=== PATIENT | male | born 1960 | race Caucasian/White ===

== ENCOUNTER → 2018-04-26 | Day surgery (SDC) | payer BC ==
--- NOTE | 2018-04-24 16:31 | Diagnostic Imaging Report ---
PROCEDURE: Frontal and lateral views of the chest. COMPARISON: None. INDICATIONS: PREOP CXR FINDINGS: Lines/tubes: None. Lungs: The lungs are well inflated and clear. There is no evidence of pneumonia or pulmonary edema. Pleura: There is no pleural effusion or pneumothorax. Heart and mediastinum: The heart and the mediastinum are normal. Bones: No acute bony abnormality. IMPRESSION: 1. No acute cardiopulmonary disease. Dictated by: Herbert Amin M.D. on 04/24/2018 at 16:37 Electronically approved by: Herbert Amin M.D. on 04/24/2018 at 16:37
[2018-04-24 16:37] LABS: BASOPHILS % 0.1 % (0.0-1.0); EOSINOPHILS % 0.4 % (0.0-6.0); HEMATOCRIT 44.9 % (38.2-49.6); HEMOGLOBIN 15.4 g/dL (14.0-18.0); LYMPHOCYTES # (AUTO) 1.9 (1.0-3.2); LYMPHOCYTES % 27.8 % (18.0-39.1); MEAN CORPUSCULAR HEMOGLOBIN 29.3 pg (28-32); MEAN CORPUSCULAR HGB CONC 34.3 g/dL (31-35); MEAN CORPUSCULAR VOLUME 85.5 fL (81-99); MONOCYTES # (AUTO) 0.4 (0.2-0.8); MONOCYTES % 6.3 % (4.4-11.3); NEUTROPHILS # (AUTO) 4.4 (2.1-6.9); NEUTROPHILS % 64.8 % (38.7-80.0); PLATELET COUNT 173 x10e3/uL (140-360); RED BLOOD COUNT 5.25 x10e6/uL (4.3-5.7)
[~2018-04-26] MED LIST: BUPIVACAINE HCL 0.5% INJ 30 ML VIAL INJ ONE; BUSPIRONE HCL5 MG PO; CEFAZOLIN SOD 1 GM VIAL ONE; DEXAMETHASONE SOD PHOS INJ 4 MG/ML VIAL ONE; FENTANYL CITRATE/PF 100MCG/2 ML INJ ONE; HYDROCODONE/APAP 5MG-325MG TAB ONE; HYDROMORPHONE 1MG/1ML INJ ONE; KETOROLAC TROMETHAMINE 30 MG/ML VIAL ONE; LIDOCAINE HCL 2% LOCAL INJ 5 ML SDV VIAL INJ ONE; MIDAZOLAM HCL 2 MG/2 ML VIAL ONE; ONDANSETRON HCL INJ 2 MG/ML VIAL ONE; PANTOPRAZOLE SO40 MG PO; PROPOFOL IV EMULSION 10 MG/ML 20 ML VIAL ONE; SEVOFLURANE INHAL SOLN 250 ML PEN BTL ONE
--- NOTE | 2018-04-26 07:42 | Operative Report ---
DATE OF PROCEDURE: April 26, 2018 PREOPERATIVE DIAGNOSIS: Left heel spur with plantar fasciitis. POSTOPERATIVE DIAGNOSIS: Left heel spur with plantar fasciitis. PLANNED PROCEDURE: Left excision of heel spur with plantar fasciotomy. BISCUIT MAKER: Dr. Lorri DPM ANESTHESIA: General with a postoperative block consisting of 10 mL of 0.5% Marcaine plain mixed with 1 mL of dexamethasone phosphate. HEMOSTASIS: Pneumatic thigh tourniquet set at 350 mmHg for a total time of approximately 15 minutes. MATERIALS: 3-0 0 Vicryl, 4-0 Prolene, one size 7 TLS drain. ESTIMATED BLOOD LOSS: Less than 10 mL. PATHOLOGY: None. DETAILS OF PROCEDURE: Patient was seen in the preoperative waiting where the correct procedure and site was identified. The patient was brought to the operating room and placed on the operating table in the supine position. General anesthesia was initiated at this time. A well-padded pneumatic tourniquet was placed about the patient's left thigh. The left foot, ankle and leg was then scrubbed, prepped and draped in the usual aseptic manner. The left foot, ankle and leg was exsanguinated with an Esmarch bandage and the pneumatic thigh tourniquet was inflated to 350 mmHg for a total time of approximately 15 minutes. Attention was directed to the medial aspect of the patient's left heel where a 4 cm linear incision was made. The incision was carried through subcutaneous tissues them from deeper underlying structures. All vital neurovascular structures were identified, retracted medial and laterally, and all bleeders were cauterized or ligated as deemed necessary. At this time, the incision was carried down to the level of the exostosis on the inferior aspect of the calcaneus. Utilizing Metzenbaum scissors, the dorsal and plantar aspect of the plantar fascia was easily identified. Utilizing Metzenbaum scissors, one-third to one-half of the plantar fasciotomy was released medially to allow for good visualization of the inferior calcaneal exostosis. Utilizing a osteotome and mallet, the exostosis was excised and passed off to the back table. The remaining portion of the heel spur was rounded off utilizing a rongeur and a bone rasp. These findings were confirmed via intraoperative fluoroscopy. The wound was then flushed with copious amounts of sterile saline. Deep tissues reapproximated with 3-0 Vicryl, subcutaneous tissue with 3-0 Vicryl and skin was closed using a running interlocking stitch with 4-0 Prolene. The incision site was dressed with Adaptic, 4 x 4s, Kerlix, Derick wrap, and a postop shoe. The patient tolerated the procedure and anesthesia well. Patient was transferred to the postoperative recovery unit with vital signs stable and vascular status intact. Patient was monitored there for a short period time before being sent home with the following written and oral instructions: 1. Keep the dressing clean, dry and tact. 2. The patient is to remain nonweightbearing to the left lower extremity and to avoid excessive ambulation until being seen in the office. 3. Patient was given the office number and instructed to contact us if any problems should arise. Job#: [id number] DORIE
--- OUTSIDE RECORDS SUMMARY | 2018-06-15 01:54 | XMS REPORT ---
Author [facility] Address Unknown Phone Unavailable Care Team Providers Care Technical Engineer Name Role Phone RITCHIE MIKE Unavailable Unavailable Problems This patient has no known problems. Allergies, Adverse Reactions, Alerts This patient has no known allergies or adverse reactions. Medications This patient has no known medications. Results Test Description Test Time Test Comments Text Results Atomic Results Result Comments CHEST 2 VIEWS 2018-04-24 16:37:00 [place] [address] Patient Name: CHRYSTAL WILDE MR #: [id number] : 1960 Age/Sex: 58/M Req #: [id number] Adm Physician: Ordered by: RITCHIE MIKE DPM Report #: [id number] Location: OR Room/Bed: Procedure: [id number] DX/CHEST 2 VIEWS Exam Date: 04/24/18 Exam Time: 1557 REPORT STATUS: Signed PROCEDURE: Frontal and lateral views of the chest. COMPARISON: None. INDICATIONS: PREOP CXR FINDINGS: Lines/tubes: None. Lungs: The lungs are well inflated and clear. There is no evidence of pneumonia or pulmonary edema. Pleura: There is no pleural effusion or pneumothorax. Heart and mediastinum: The heart and the mediastinum are normal. Bones: No acute bony abnormality. IMPRESSION: 1. No acute cardiopulmonary disease. Dictated by: Herbert Amin M.D. on at 16:37 Electronically approved by: Herbert Amin M.D. on 04/24 at 16:37 Dictated By: HERBERT AMIN MD Transcribed By: JIM on 04/24/187 COPY TO: RITCHIE MIKE DPM
== END | disposition home or self-care (01) ==
LOC: OR 05:04
PROVIDERS: ATTEND Podiatrist Foot & Ankle Surgery
DX: M77.32 Calcaneal spur, left foot (principal); M72.2 Plantar fascial fibromatosis; R06.83 Snoring; K21.9 Gastro-esophageal reflux disease without esophagitis; F41.9 Anxiety disorder, unspecified; Z01.810 Encounter for preprocedural cardiovascular examination; Z01.812 Encounter for preprocedural laboratory examination; Z01.818 Encounter for other preprocedural examination
CPT/HCPCS: 28119; 36415; 71046; 85025; 93005; J0690; J1100; J1170; J1885; J2001; J2250; J2405